=== PATIENT | male | born 1965 | race Caucasian/White ===

== ENCOUNTER 2017-04-25 18:19 | Emergency (ER) | payer SELFPAY ==
[~2017-04-25] VITALS: Ht 193 cm; Wt 200.2 kg
[2017-04-25 18:22] VITALS: BP 180/98; PULSE 90; RESP 22; TEMP 98.3; O2SAT 92
--- NOTE | 2017-04-25 18:33 | PD ---
Physical Exam Time Seen by Provider: 18:26 Narrative 51yo M c/o decreased oxygen saturation, 86%, while at Dr. Rey's office today. C/o SOB x 1 month. Denies chest pain. +cough for " a long time." Denies hx COPD , asthma, tobacco use. SaO2 92% in triage. Patient in no acute distress in triage. Was told he was diabetic today and has a prescription at [facility] for Metformin. BGM in triage 125. Patient seen in triage. VS reviewed. Awaiting bed placement. Data Data Last Documented VS Vital Signs Date Time Temp Pulse Resp B/P Pulse Ox O2 Delivery O2 Flow Rate FiO2 04/25/17 18:22 98.3 90 22 180/98 92 Room Air MDM Supervised Visit with PAULINO: Doreen Randhawa Apr 25, 2017 18:33
[2017-04-25 19:38] VITALS: BP 150/85; PULSE 77; O2SAT 95
[2017-04-25] MEDS ORDERED: arthritis med (19:45)
--- NOTE | 2017-04-25 19:57 | PD ---
HPI Chief Complaint: Respiratory Distress Time Seen by Provider: 19:37 Travel History International Travel<30 days: No Contact w/Intl Traveler<30days: No Traveled to known affect area: No History of Present Illness HPI This is a 51-year-old male who presents to the emergency department with increasing shortness of breath that spinning going on for months, moderate severity, worse with exertion, improved with rest. He says he sleeps with several pillows at night but he always used at night. He does wake up in the middle the night short of breath. He went to his primary care doctor today where he was told he had an abnormal EKG and a low oxygen saturation. He improved somewhat since primary care doctor said he could follow-up as an outpatient with a c [employer] crew chief but throughout the day he started to feel more sweaty and wasn't feeling well also his siblings encouraged him to come to the emergency department. He denies any long trips but he does report he has been fairly sedentary due to weight gain and arthritis. He denies any chest pain. He recently was ill with a cold and had a productive cough which he feels like he is just now getting over. PFSH Past Medical History Diabetes: Yes (per patient today diag) Patient Takes Glucophage: No Hiatal Hernia: Yes Musculoskeletal: Yes (hx left arm sx) Tetanus Vaccination: > 5 Years Influenza Vaccination: No Social History Alcohol Use: Yes (occ) Tobacco Use: No Substance Use: No Allergies-Medications (Allergen,Severity, Reaction): Coded Allergies: No Known Allergies (Unverified , 04/25/17) Reported Meds & Prescriptions Reported Meds & Active Scripts Active Reported [arthritis med] Review of Systems Except as stated in HPI: all other systems reviewed are Neg Physical Exam Narrative GENERAL:Well appearing, morbidly obese SKIN: Focused skin assessment warm and dry. HEAD: Atraumatic. Normocephalic. EYES: Pupils equal and round. No injection or drainage. ENT: Moist mucous membranes NECK: Trachea midline. CARDIOVASCULAR: Regular rate and rhythm. No murmur appreciated. 2+ bilateral lower extremity pitting edema RESPIRATORY: Mild diffuse wheezing, no tachypnea GASTROINTESTINAL: Abdomen soft, non-tender, nondistended. Umbilical hernia. MUSCULOSKELETAL: No obvious deformities. NEUROLOGICAL: Awake and alert. No obvious cranial nerve deficits. Moving all extremities. PSYCHIATRIC: Appropriate mood and affect; insight and judgment normal. Data Data Last Documented VS Vital Signs Date Time Temp Pulse Resp B/P Pulse Ox O2 Delivery O2 Flow Rate FiO2 04/25/17 20:46 Room Air 04/25/17 19:38 77 150/85 95 04/25/17 18:22 98.3 22 Orders Complete Blood Count With Diff (04/25/17 19:54) Comprehensive Metabolic Panel (04/25/17 19:54) B-Type Natriuretic Peptide (04/25/17 19:54) D-Dimer (04/25/17 19:54) Troponin I (04/25/17 19:54) Iv Access Insert/Monitor (04/25/17 19:54) Ecg Monitoring (04/25/17 19:54) Oximetry (04/25/17 19:54) Oxygen Administration (04/25/17 19:54) Chest, Single Ap (04/25/17 19:54) Sodium Chloride 0.9% Flush (Ns Flush) (04/25/17 20:00) Methylprednisolone So Succ Inj (Solumedr (04/25/17 20:00) Albuterol-Ipratropium Neb (Duoneb Neb) (04/25/17 20:00) Electrocardiogram (04/25/17 19:42) Labs Laboratory Tests Test 04/25/17 20:00 White Blood Count 7.8 TH/MM3 Red Blood Count 5.23 MIL/MM3 Hemoglobin 16.1 GM/DL Hematocrit 48.2 % Mean Corpuscular Volume 92.2 FL Mean Corpuscular Hemoglobin 30.9 PG Mean Corpuscular Hemoglobin 33.5 % Concent Red Cell Distribution Width 13.7 % Platelet Count 252 TH/MM3 Mean Platelet Volume 9.4 FL Neutrophils (%) (Auto) 59.9 % Lymphocytes (%) (Auto) 29.3 % Monocytes (%) (Auto) 8.5 % Eosinophils (%) (Auto) 1.7 % Basophils (%) (Auto) 0.6 % Neutrophils # (Auto) 4.7 TH/MM3 Lymphocytes # (Auto) 2.3 TH/MM3 Monocytes # (Auto) 0.7 TH/MM3 Eosinophils # (Auto) 0.1 TH/MM3 Basophils # (Auto) 0.0 TH/MM3 CBC Comment DIFF FINAL Differential Comment D-Dimer Quantitative (PE/DVT) 0.37 MG/L FEU Sodium Level 139 MEQ/L Potassium Level 4.0 MEQ/L Chloride Level 101 MEQ/L Carbon Dioxide Level 28.5 MEQ/L Anion Gap 10 MEQ/L Blood Urea Nitrogen 14 MG/DL Creatinine 0.85 MG/DL Estimat Glomerular Filtration 94 ML/MIN Rate Random Glucose 131 MG/DL Calcium Level 8.6 MG/DL Total Bilirubin 0.4 MG/DL Aspartate Amino Transf 17 U/L (AST/SGOT) Alanine Aminotransferase 39 U/L (ALT/SGPT) Alkaline Phosphatase 72 U/L Troponin I LESS THAN 0.02 NG/ML B-Type Natriuretic Peptide 14 PG/ML Total Protein 7.6 GM/DL Albumin 3.6 GM/DL [facility] Medical Decision Making Medical Screen Exam Complete: Yes Emergency Medical Condition: Yes Interpretation(s) Afebrile, no tachycardia, hypertensive, mild hypoxia No leukocytosis Electrolytes are reassuring BNP is 14 D-dimer is 0.37 EKG: Normal sinus rhythm, Right bundle branch block, possible Q waves in V3 and V4 Chest x-ray: Left lower lobe pneumonia Differential Diagnosis Pneumonia, pulmonary embolism, congestive heart failure, acute coronary syndrome Narrative Course This is a 51-year-old male who presents to the emergency department with a productive cough for several weeks in the setting of a cold associated with a low oxygen saturation at his primary care physician today and increasing shortness of breath. Labs were obtained including a BNP, troponin and a d- dimer all of which were reassuring. Patient denies any chest pain. He does have evidence of a left lung base pneumonia on chest x-ray which makes sense with his symptoms as he has had a preceding respiratory infection. I think he would benefit from outpatient bronchodilator treatment, prednisone and antibiotic therapy. He was wheezing somewhat on exam. I suspect his symptoms are pulmonary. Patient will be discharged home. Diagnosis Primary Impression: Pneumonia Qualified Code: J18.1 - Pneumonia of left lower lobe due to infectious organism Patient Instructions: General Instructions Additional Instructions: If you develop severe chest pain, shortness of breath, sweating, lightheadedness , dizziness or difficulty breathing return to the emergency department immediately. Followup with your primary care physician in 2-3 days if your symptoms are not resolved. Med/Other Pt SpecificInfo: Prescription(s) given Scripts Albuterol 8.5 GM Inh (Proair Hfa 8.5 GM Inh)90 Mcg/Act Aer2 Puff INH Q4-6H PRN ( SHORTNESS OF BREATH) #1 INHALER Ref 0 108 mcg/actuation Prov:Afshan Roblero MD 04/25/17 Prednisone 20 Mg Tab40 Mg PO DAILY 4 Days Prov:Afshan Roblero MD 04/25/17 Levofloxacin (Levaquin)500 Mg [id number] Mg PO DAILY 5 Days Prov:Afshan Roblero MD 04/25/17 Disposition: 01 DISCHARGE HOME Condition: Stable Afshan Roblero MD Apr 25, 2017 19:57
[2017-04-25] MEDS ORDERED: methylPREDNISolone SOD SUCC 125 MG/2 ML VIAL IVP ONE (20:00)
[2017-04-25] MEDS ORDERED: SODIUM CHLORIDE 0.9% FLUSH 10 ML FLUSH IVF PRN (20:00)
[2017-04-25] MEDS: RESP: ALBUTEROL 2.5 MG/IPRATROPIUM 0.5 MG NEB (SCH) INH (20:10)
[2017-04-25 20:21] LABS: AUTOMATED NEUTROPHIL # 4.7 TH/MM3 (1.8-7.7); BASOPHIL % 0.6 % (0.0-2.0); EOSINOPHIL # 0.1 TH/MM3 (0-0.4); EOSINOPHIL % 1.7 % (0.0-4.0); HEMATOCRIT 48.2 % (39.0-51.0); HEMO FLAGS DIFF FINAL; LYMPH % 29.3 % (9.0-44.0); LYMPHOCYTE # 2.3 TH/MM3 (1.0-4.8); MEAN CELL VOLUME 92.2 FL (80.0-100.0); MEAN CORPUSCULAR HEMOGLOBIN 30.9 PG (27.0-34.0); MEAN CORPUSCULAR HGB CONC 33.5 % (32.0-36.0); MONO % 8.5 % (0.0-8.0); NEUT % 59.9 % (16.0-70.0); PLATELET COUNT 252 TH/MM3 (150-450); RED BLOOD COUNT 5.23 MIL/MM3 (4.50-5.90); RED CELL DISTRIBUTION WIDTH 13.7 % (11.6-17.2); WHITE BLOOD COUNT 7.8 TH/MM3 (4.0-11.0)
--- NOTE | 2017-04-25 20:29 | RADRPT ---
EXAM DATE/TIME: 04/25/2017 20:09 [place] COMPARISON: No previous studies available for comparison. INDICATIONS : Shortness of breath. MEDICAL HISTORY : Diabetes mellitus type II. SURGICAL HISTORY : None. ENCOUNTER: Initial ACUITY: 1 month PAIN SCORE: 0/10 LOCATION: Bilateral chest FINDINGS: Consolidation is seen of the left lung base. There is trace atelectasis at the right base. No definit e effusion. No pneumothorax. Heart size within normal limits. CONCLUSION: Suspected left base pneumonia. Trace atelectasis right base. Louie Virgen MD on April 25, 2017 at 20:26 Board Certified Radiologist. This report was verified electronically.
[2017-04-25 21:04] LABS: ALT (GPT) 39 U/L (12-78); ANION GAP 10 MEQ/L (5-15); AST (GOT) 17 U/L (15-37); BICARBONATE 28.5 MEQ/L (21.0-32.0); BLOOD UREA NITROGEN 14 MG/DL (7-18); CHLORIDE 101 MEQ/L (98-107); SODIUM (NA) 139 MEQ/L (136-145)
[2017-04-25 21:09] LABS: ALKALINE PHOSPHATASE 72 U/L (45-117); GLOMERULAR FILTRATION RATE 94 ML/MIN (>89); TOTAL BILIRUBIN ADULT 0.4 MG/DL (0.2-1.0)
[2017-04-25] MEDS ORDERED: ALBUAER3 INH (22:11)
[2017-04-25] MEDS ORDERED: LEVA500T20 PO (22:11)
[2017-04-25] MEDS ORDERED: PRED20 PO (22:11)
--- NOTE | 2017-04-26 22:39 | EKG ---
Date Performed: 04/25/2017 Time Performed: 19:42:07 PTAGE: 51 years EKG: Sinus rhythm RIGHT BUNDLE BRANCH BLOCK LEFT ANTERIOR FASCICULAR BLOCK POSSIBLE ANTERIOR MYOCARDIAL INFARCTION ABN ORMAL ECG NO PREVIOUS TRACING DOCTOR: Connie Barnes Interpretating Date/Time 04/26/2017 22:38:05
== END 2017-04-25 23:27 | disposition home or self-care (01) ==
LOC: NEPE 18:19
DX: J18.1 Lobar pneumonia, unspecified organism (principal); R06.2 Wheezing; R94.31 Abnormal electrocardiogram [ECG] [EKG]; E11.9 Type 2 diabetes mellitus without complications; E66.01 Morbid (severe) obesity due to excess calories; Z87.39 Personal history of other diseases of the musculoskeletal system and connective tissue
CPT/HCPCS: 71010; 80053; 83880; 84484; 85025; 85379; 93005; 94640; 94664; 96374; 99285; J2930